=== PATIENT | female | born 1980 | race Caucasian/White ===

== ENCOUNTER 2018-02-07 06:24 | Inpatient (IN) | payer BC ==
--- NOTE | 2018-02-07 07:00 | HP ---
General Information - General Information Maternal Age: 37 Grav: 4 Para: 2 SAB: 1 IEA: 0 Estimated Due Date: 02/14/18 Determined By: LMP Gestational Age in Weeks and Days: 33 Weeks and 3 Days Maternal Blood Type and Rh: O Positive - Results this Serology/RPR Result: Non-Reactive Rubella Result: Immune HBsAg Result: Negative HIV Result: Negative GBS Culture Result: Negative Past Medical History Delivery History: See Records - x2, one at 33 wks, h/o retained placenta Pertinent Past Medical History: See Records - none Pertinent Past Surgical History: See Records - D&C Pertinent Family History: See Records - Antepartal Records Antepartal Records: Reviewed, Complicated by: - h/o PTD at 33 wks Review of Systems Constitutional: Uncomfortable CV Complaint: No Respiratory: Shortness of Breath: No Gastrointestinal: No Nausea/Vomiting Genitourinary: No Dysuria, No Bleeding, No Leaking Fluid Musculoskeletal: Contractions - for about an hour, strong, Q2 min Movement: Normal Exam Allergies/Adverse Reactions: Allergies No Known Allergies Allergy (Verified 12/30/17 23:41) normal, afebrile - Measurements Height: 5 ft 7 in Weight: 192 lb Body Mass Index (BMI): 30.0 Pre- Weight: 150 lb - Exam Abdomen: No Upper Quadrant Pain Breast: Breast Exam Deferred Heart: Normal Rhythm/Heart Sounds Lungs: Clear Bilaterally Rectal: Rectal Exam Deferred - Abdominal Exam Abdomen Exam: Non-Tender, Fundal Height Consistent with Dates Targeted Exam Findings Cervical Exam: 4cm Effacement: 80% Station: -2 Presenting Part: Vertex Membrane Status: Intact Bleeding/Discharge: None EFM Findings - External Monitor Findings Baseline Heart Rate: 130 External Monitor Findings: Accelerations Present, No Pattern of Variable or Late Decelerations, Variability Moderate Contractions: Regular, Strong Contraction Frequency: Q2 min Assessment/Plan - Reason for Visit Reason for Visit: 39 wks, membranes swept yesterday, active labor, desires epidural. Very reassuring FHT. - Plan Plan: Active Labor - , epidural
[2018-02-07] MEDS ORDERED: OBEPIDURAL* 250 ML EPIDURAL ONE (07:09)
[2018-02-07 08:07] LABS: ABS Basophils 0 10^3/ul (0-0.2); ABS Eosinophils 0.1 10^3/ul (0-0.6); ABS Lymphocytes 1.8 10^3/ul (1.0-4.8); ABS Monocytes 0.7 10^3/ul (0-0.8); ABS Neutrophils 8.4 10^3/ul (1.5-7.7); ABS Nucleated RBC 0 10^3/ul; Eosinophil % 1.1 % (0-6); Hematocrit 33 % (35-47); Hemoglobin 11.4 g/dl (12.0-16.0); Lymphocyte % 16.4 % (25-47); Mean Corpuscular HGB Conc 34 g/dl (31-36); Mean Corpuscular Hemoglobin 31 pg (27-31); Mean Corpuscular Volume 90 fL (80-97); Mean Platelet Volume 8.8 um3 (7.4-10.4); Nucleated Red Blood Cells % 0; Platelet Count 202 10^3/ul (150-450); Red Cell Distribution Width 15 % (10.5-15); White Blood Count 11.1 10^3/ul (3.5-10.8)
[2018-02-07] MEDS ORDERED: Hetastarch 6% in NS* 500 ML IV PRN (08:18)
[2018-02-07] MEDS ORDERED: Phenylephrine IV* 40 MCG/ML 10 ML SYRINGE IV PUSH PRN ×2 (08:18)
[2018-02-07] MEDS ORDERED: Sodium Citrate/Citric Acid* 15 ML UDC PO PRN (08:18)
[2018-02-07] MEDS ORDERED: Hetastarch 6% in NS* 200 ML IV PRN (08:18)
[2018-02-07] MEDS ORDERED: EPHEDrine (Pressors)* 50 MG/ML VIAL IV PUSH PRN ×2 (08:18)
[2018-02-07] MEDS ORDERED: Famotidine TAB* 20 MG PO PRN (08:18)
[2018-02-07] MEDS ORDERED: OBEPIDURAL* 250 ML EPIDURAL SCH (09:00)
[2018-02-07] MEDS ORDERED: Oxytocin in LR* 20 UNITS/1,000 ML BAG IVPB ONE (09:47)
[2018-02-07] MEDS ORDERED: Misoprostol TAB* 200 MCG PR ONE (10:53)
[2018-02-07] MEDS ORDERED: Acetaminophen TAB* 325 MG PO PRN (10:53)
[2018-02-07] MEDS ORDERED: Witch Hazel PAD* JAR TOPICAL PRN (10:53)
[2018-02-07] MEDS ORDERED: Dibucaine 1% 28.35 GM TUBE PR PRN (10:53)
[2018-02-07] MEDS ORDERED: Glycerin ADULT SUPP PR PRN (10:53)
[2018-02-07] MEDS ORDERED: Oxytocin in LR* 20 UNITS/1,000 ML BAG IVPB SCH (11:00)
[2018-02-07] MEDS ORDERED: Misoprostol TAB* 200 MCG ONE (11:11)
[2018-02-07] MEDS: Ibuprofen TAB* 600 MG PO PRN ×2 (12:27→19:45)
[2018-02-07] MEDS ORDERED: Simethicone TAB* 80 MG TAB.CHEW PO SCH (12:30)
[2018-02-07] MEDS ORDERED: fentaNYL* 50 MCG/ML 2 ML VIAL (100 MCG VIAL) IV ONE (12:47)
[2018-02-07] MEDS ORDERED: fentaNYL* 50 MCG/ML 2 ML VIAL (100 MCG VIAL) ONE (12:48)
[2018-02-07] MEDS ORDERED: ceFOXitin 2 GM IVPREMIX* 2 GM/50 ML BAG IVPB ONE (12:59)
[2018-02-07] MEDS ORDERED: ceFOXitin 2 GM IVPREMIX* 2 GM/50 ML BAG ONE (13:02)
[2018-02-07] MEDS: Docusate CAP* 100 MG PO SCH (19:46)
[2018-02-08] MEDS: Ibuprofen TAB* 600 MG PO PRN ×3 (03:52→18:02)
[2018-02-08 07:15] LABS: Hematocrit 30 % (35-47); Hemoglobin 10.4 g/dl (12.0-16.0); Mean Corpuscular HGB Conc 34 g/dl (31-36); Mean Corpuscular Hemoglobin 31 pg (27-31); Mean Corpuscular Volume 91 fL (80-97); Mean Platelet Volume 8.4 um3 (7.4-10.4); Platelet Count 177 10^3/ul (150-450); Red Blood Count 3.33 10^6/ul (4.00-5.40); Red Cell Distribution Width 15 % (10.5-15); White Blood Count 10.9 10^3/ul (3.5-10.8)
[2018-02-08 07:58] LABS: ABS Basophils 0 10^3/ul (0-0.2); ABS Eosinophils 0.1 10^3/ul (0-0.6); ABS Lymphocytes 1.7 10^3/ul (1.0-4.8); ABS Monocytes 0.7 10^3/ul (0-0.8); ABS Neutrophils 8.2 10^3/ul (1.5-7.7); ABS Nucleated RBC 0 10^3/ul; Eosinophil % 1.1 % (0-6); Lymphocyte % 15.4 % (25-47); Nucleated Red Blood Cells % 0
[2018-02-08] MEDS: Docusate CAP* 100 MG PO SCH ×2 (08:35→14:43)
[2018-02-08] MEDS ORDERED: Ferrous Gluconate TAB* 324 MG TAB PO SCH (09:00)
[2018-02-09] MEDS: Ibuprofen TAB* 600 MG PO PRN ×2 (02:58→08:53)
[2018-02-09 08:02] VITALS: BP 103/63
[2018-02-09] MEDS: Docusate CAP* 100 MG PO SCH (08:53)
== END 2018-02-09 12:24 | disposition home or self-care (01) | DRG 560 ==
LOC: MCHOBOUT 06:24 → MCHOB 06:39
PROVIDERS: ADMIT Obstetrics & Gynecology; ATTEND Obstetrics & Gynecology
PROC: 10E0XZZ Delivery of Products of Conception, External Approach (ICD-10-PCS; principal; 2018-02-07)
PROC: 10907ZC Drainage of Amniotic Fluid, Therapeutic from Products of Conception, Via Natural or Artificial Opening (ICD-10-PCS; 2018-02-07)
PROC: 0KQM0ZZ Repair Perineum Muscle, Open Approach (ICD-10-PCS; 2018-02-07)
PROC: 4A1HXCZ Monitoring of Products of Conception, Cardiac Rate, External Approach (ICD-10-PCS; 2018-02-07)
PROC: 0UCG7ZZ Extirpation of Matter from Vagina, Via Natural or Artificial Opening (ICD-10-PCS; 2018-02-07)
DX: O69.2XX0 Labor and delivery complicated by other cord entanglement, with compression, not applicable or unspecified (principal); O72.1 Other immediate postpartum hemorrhage; O69.81X0 Labor and delivery complicated by cord around neck, without compression, not applicable or unspecified; Z3A.39 39 weeks gestation of pregnancy; Z37.0 Single live birth; O70.1 Second degree perineal laceration during delivery
CPT/HCPCS: 36415; 85025; 86850; 86900; 86901; A9270-GY; J0694; J3010

== ENCOUNTER 2019-11-05 20:25 | Emergency (ER) | payer BC ==
[2019-11-05 22:02] LABS: Influenza A Molecular Negative (Negative); Influenza B Molecular Negative (Negative)
--- NOTE | 2019-11-05 22:24 | UC ---
Respiratory Complaint HPI - HPI Summary HPI Summary: PT IS A PROVIDER HERE AT . WAS ADVISED TO BE TESTED FOR COVID-19 SHE TREATED A PT ON 10/27/2019 WHO WAS NOT CONSIDERED A PUI FOR COVID-19 AT THE TIME. HE RETURNED TO THE URGENT CARE 6 DAYS LATER ON 11/02/2019 AND COVID-19 SWAB RETURNED POSITIVE TODAY. SHE HAS HAD A FEW DAYS OF MILD COUGH, INTERMITTENT SORE THROAT, NASAL CONGESTION AND POSTNASAL DRAINAGE. SHE HAS HAD A FEW DAYS OF WATERY DIARRHEA WHICH DOES SEEM TO BE IMPROVING. NO FEVER. NO MYALGIAS. NO HEADACHE. - History of Current Complaint Chief Complaint: UCGeneralIllness Stated Complaint: FLU TEST Time Seen by Provider: 11/05/19 21:29 Hx Obtained From: Patient Hx Last Menstrual Period: today Onset/Duration: Gradual Onset, Lasting Days, Still Present Timing: Constant Severity Initially: Mild Severity Currently: Mild Pain Intensity: 1 Pain Scale Used: 0-10 Numeric Character: Cough: Nonproductive Aggravating Factors: Nothing Alleviating Factors: Nothing Associated Signs And Symptoms: Positive: URI, Nasal Congestion. Negative: Fever , Chills, Wheezing - Allergies/Home Medications Allergies/Adverse Reactions: Allergies Allergy/AdvReac Type Severity Reaction Status Date / Time No Known Allergies Allergy Verified 11/05/19 22:09 Home Medications: Home Medications Ped Multivit 43/Iron Fumarate [Flintstones Complete Chew Tab] 1 tab PO DAILY [History Confirmed 11/05/19] Ibuprofen TAB* [Motrin TAB* 600 MG] 600 mg PO Q6H PRN #30 tab 02/09/18 [Rx Confirmed 11/05/19] Levothyroxine TAB* [Synthroid 25 MCG TAB*] 1 tab PO DAILY 11/05/19 [History Confirmed 11/05/19] PMH/Surg Hx/FS Hx/Imm Hx Endocrine History: Hypothyroidism Other History Of: Negative For: Anticoagulant Therapy - Surgical History Surgical History: Yes Surgery Procedure, Year, and Place: D&C ; WISDOM TEETH - Family History Known Family History: Positive: None Negative: Cardiac Disease, Hypertension, Diabetes - Social History Alcohol Use: None Substance Use Type: None Smoking Status (MU): Never Smoked Tobacco - Immunization History Most Recent Influenza Vaccination: 2015 Most Recent Tetanus Shot: 2008 Most Recent Pneumonia Vaccination: never Review of Systems All Other Systems Reviewed And Are Negative: Yes Constitutional: Positive: Negative ENT: Positive: Sore Throat, Nasal Discharge Respiratory: Positive: Cough Cardiovascular: Positive: Negative Gastrointestinal: Positive: Diarrhea. Negative: Vomiting, Nausea Musculoskeletal: Positive: Negative Neurological/Mental Status: Positive: Negative Physical Exam Triage Information Reviewed: Yes Appearance: Well-Appearing, No Pain Distress, Well-Nourished Vital Signs: Initial Vital Signs Temp 98.2 F 11/05/19 22:01 Pulse 67 11/05/19 22:01 Resp 15 11/05/19 22:01 BP 120/70 11/05/19 22:01 Pulse Ox 99 11/05/19 22:01 Laboratory Tests 11/05/19 11/05/19 21:48 21:51 Influenza A (Rapid) Negative Influenza B (Rapid) Negative Group A Strep Rapid Negative Vital Signs Reviewed: Yes Eyes: Positive: Conjunctiva Clear ENT: Positive: Hearing grossly normal Neck: Positive: Supple Respiratory: Positive: No respiratory distress, No accessory muscle use Cardiovascular: Positive: Pulses Normal Musculoskeletal: Positive: No Edema Neurological: Positive: Alert Psychological: Positive: Age Appropriate Behavior Skin: Negative: Rashes Respiratory Course/Dx - Course Course Of Treatment: PATIENT REFERRED FOR TESTING FOR COVID-19 GIVEN EXPOSURE TO KNOWN POSITIVE INDIVIDUAL. FLU NEGATIVE. STREP NEGATIVE. SWABS FOR COVID-19 WELL RESPIRATORY PATHOGEN PANEL SENT. PATIENT DISCHARGED HOME TO SELF-ISOLATION. SHE WILL BE FOLLOWED UP BY THE HEALTH DEPARTMENT. - Differential Dx/Diagnosis Provider Diagnosis: Viral syndrome Discharge ED - Sign-Out/Discharge Documenting (check all that apply): Patient Departure All imaging exams completed and their final reports reviewed: No Studies - Discharge Plan Condition: Stable Disposition: HOME Patient Education Materials: Viral Syndrome (ED) Referrals: Rachel Teran MD [Primary Care Provider] - If Needed Additional Instructions: FLU NEGATIVE. STREP NEGATIVE. TESTING FOR COVID-19 AND RESPIRATORY PATHOGENS COMPLETED TODAY. YOU SHOULD EXPECT RESULTS IN 2-6 DAYS. YOU ARE BEING DISCHARGED TO SELF-ISOLATION AT HOME. THE HEALTH DEPARTMENT WILL BE FOLLOWING UP WITH YOU. CALL 911 IF YOU DEVELOP WORSENING RESPIRATORY DISTRESS, FEVER, PAIN OR ANY OTHER CONCERNING SYMPTOMS. - Billing Disposition and Condition Condition: STABLE Disposition: Home
[2019-11-05 22:33] VITALS: BP 120/70
--- NOTE | 2019-11-06 11:44 | UC ---
- Progress Note Progress Note: Call from [facility] - unable to do viral resp panel as needed green swab and red was sent. Order canceled. Course/Dx - Diagnoses Provider Diagnoses: Viral syndrome Discharge ED - Sign-Out/Discharge Documenting (check all that apply): Post-Discharge Follow Up All imaging exams completed and their final reports reviewed: No Studies - Discharge Plan Condition: Stable Disposition: HOME Patient Education Materials: Viral Syndrome (ED) Referrals: Rachel Teran MD [Primary Care Provider] - If Needed Additional Instructions: FLU NEGATIVE. STREP NEGATIVE. TESTING FOR COVID-19 AND RESPIRATORY PATHOGENS COMPLETED TODAY. YOU SHOULD EXPECT RESULTS IN 2-6 DAYS. YOU ARE BEING DISCHARGED TO SELF-ISOLATION AT HOME. THE HEALTH DEPARTMENT WILL BE FOLLOWING UP WITH YOU. CALL 911 IF YOU DEVELOP WORSENING RESPIRATORY DISTRESS, FEVER, PAIN OR ANY OTHER CONCERNING SYMPTOMS. - Billing Disposition and Condition Condition: STABLE Disposition: Home
== END 2019-11-05 22:35 | disposition home or self-care (01) ==
LOC: UCEAST 20:25
DX: B34.9 Viral infection, unspecified (principal); E03.9 Hypothyroidism, unspecified; R05 Cough; R09.81 Nasal congestion; R19.7 Diarrhea, unspecified; Z79.890 Hormone replacement therapy
CPT/HCPCS: 87651; 99211; G0463; U0002